=== PATIENT | female | born 2005 | race Hispanic/Latino ===

== ENCOUNTER 2023-02-23 13:46 | Emergency (ER) | payer OTHER, SELFPAY ==
[2023-02-23 13:57] VITALS: BP 110/65; PULSE 87; RESP 16; TEMP 36.6; O2SAT 99
--- NOTE | 2023-02-23 14:51 | ED.EAR ---
HPI - Ear Problem General Chief complaint: Ear Stated complaint: Right Ear Irritation Time Seen by Provider: 02/23/23 14:51 Source: patient Mode of arrival: ambulatory Limitations: no limitations History of Present Illness HPI Narrative: 17 y/o female presented for c/o right ear pain for one week. Endorses decreased hearing. Denies tinnitus, drainage, headache, n/v/d/f/c. Has sinus congestion and drainage often. Not taking anything for symptoms. MD Complaint: ear pain Related Data Home Medications Medication Instructions Recorded Confirmed clobazam 20 mg tablet mg 02/23/23 folic acid 1 mg tablet 02/23/23 lacosamide 200 mg tablet (Vimpat) mg 02/23/23 levothyroxine 88 mcg tablet mcg 02/23/23 ruxolitinib 1.5 % topical cream applic topical 02/23/23 (Opzelura) zonisamide 100 mg capsule mg PO 02/23/23 Allergies Allergy/AdvReac Type Severity Reaction Status Date / Time carbamazepine Allergy Mild Unknown Unverified 02/23/23 13:54 Review of Systems Review of Systems: CONSTITUTIONAL: Denies malaise, chills, or fever. EYES: Denies visual changes, redness, or discharge. ENT: Denies sinus pain, and sore throat. Reports ear pain, rhinorrhea CARDIOVASCULAR: Denies chest pain, palpitations, or edema. RESPIRATORY: Denies cough or dyspnea. GASTROINTESTINAL: Denies abdominal pain, nausea, vomiting, diarrhea SKIN: Denies rash or itching. MUSCULOSKELETAL: Denies myalgia. NEUROLOGIC: Denies headache. All systems reviewed & are unremarkable except as noted in HPI and below [facility] Past Medical History Medical History (Updated 02/23/23 @ 15:01 by Katherine Boggs, ROZINA) Seizure Comments At time of signature, agree with nursing past medical, surgical, social and family history. There is no relevant family history pertinent to the presenting complaint Exam Narrative: GENERAL: Well-appearing HEAD: Normocephalic EYES: PERRLA, conjunctivae clear ENT: Nares clear. Mucous membranes moist. Left TM pearly ortega with normal light reflex; Right TM erythematous and bulging with purulent effusion; no tragal tenderness. Oropharynx not erythematous Tonsils not enlarged NECK: Supple. No lymphadenopathy CHEST: Clear to auscultation, breath sounds equal. No wheezing, rhonchi, rales, or stridor. No respiratory distress, speaks in full sentences. HEART: Regular rate and rhythm. No murmur heard. SKIN: Warm, dry, no rash. NEURO: Alert and oriented x3. PSYCH: Normal mood and affect Course Course Emergency Course: Patient is aware of diagnosis, understands and agrees to treatment plan. Anticipatory guidance given. Patient agrees to follow-up as directed and is aware of reasons to seek care at the emergency department. Portions of this record may have been created with voice recognition software Level of Care: Express Care Visit Vital Signs Vital signs: Vital Signs Temperature 97.9 F 02/23/23 13:57 Pulse Rate 87 02/23/23 13:57 Respiratory Rate 16 02/23/23 13:57 Blood Pressure 110/65 02/23/23 13:57 Pulse Oximetry 99 02/23/23 13:57 Oxygen Delivery Room Air 02/23/23 13:57 Temperature 97.9 F 02/23/23 13:57 Pulse Rate 87 02/23/23 13:57 Respiratory Rate 16 02/23/23 13:57 Blood Pressure 110/65 02/23/23 13:57 Pulse Oximetry 99 02/23/23 13:57 Oxygen Delivery Room Air 02/23/23 13:57 Reviewed Medical Decision Making MDM Narrative Medical decision making narrative: Right AOM, discussed PE findings and Rx abx. Advised supportive measures and signs/symptoms to go to the ER. Patient is appropriate for outpatient treatment and follow-up. Differential Diagnosis Differential Diagnosis: Coronavirus, strep pharyngitis, allergic rhinitis, upper respiratory tract infection, sinusitis, rhinosinusitis, nasopharyngitis, viral pharyngitis, otitis media, otitis externa, eustachian tube dysfunction, foreign body, cerumen impaction. Vital Signs Vital Signs: Vital Signs Temperature 97.9 F 05
[2023-02-23 14:54] VITALS: BP 110/65; PULSE 87; RESP 16; TEMP 36.6; O2SAT 99
== END 2023-02-23 15:04 | disposition home or self-care (01) ==
PROVIDERS: Emergency Provider Nurse Practitioner Family; PCP Physician Assistant
DX: H66.001 Acute suppurative otitis media without spontaneous rupture of ear drum, right ear (principal)
CPT/HCPCS: 99213; G0463

== ENCOUNTER 2025-06-25 14:22 | Emergency (ER) | payer OTHER, SELFPAY ==
--- NOTE | 2025-06-25 14:26 | ED.EAR ---
HPI - Ear Problem General Stated complaint: LT Ear Problems Time Seen by Provider: 06/25/25 14:26 Source: patient Mode of arrival: ambulatory Limitations: no limitations History of Present Illness HPI Narrative: Patient is a 20-year-old female presents with intermittent tinnitus for 2 weeks. Patient started on risperidone in February. Patient reports symptoms are worse when she is in the bathroom and improved when wearing ear plugs. Mother's concern that patient is having episodes of psychosis where she is hallucinating. Patient denies any ear pain MD Complaint: ear pain Related Data Home Medications ?Medication ?Instructions ?Recorded ?Confirmed ?Last Taken ?Type clobazam 20 mg tablet mg 02/23/23 Unknown History folic acid 1 mg tablet 02/23/23 Unknown History lacosamide 200 mg tablet (Vimpat) mg 02/23/23 Unknown History ruxolitinib 1.5 % topical cream applic topical 02/23/23 Unknown History (Opzelura) zonisamide 100 mg capsule mg PO 02/23/23 Unknown History levothyroxine 125 mcg tablet mcg 06/25/25 Unknown History risperidone 0.5 mg tablet mg 06/25/25 Unknown History Allergies Allergy/AdvReac Type Severity Reaction Status Date / Time carbamazepine Allergy Intermediate Rash Verified 06/25/25 14:25 Review of Systems Review of Systems: All systems reviewed & are unremarkable except as noted in HPI and below Constitutional: Constitutional: Denies body ache(s), Denies chills, Denies fever(s), Denies headache(s) and Denies malaise Eyes: Eyes: Denies blurry vision, Denies eye discharge and Denies irritation ENT: Reports otalgia, Denies headache(s), Denies nasal congestion, Denies nasal discharge, Denies sore throat and Reports other (Tinnitus) Cardiovascular: Cardiovascular: Denies chest pain, Denies edema, Denies palpitations and Denies dyspnea on exertion Respiratory: Respiratory: Denies cough and Denies dyspnea on exertion Gastrointestinal: Gastrointestinal: Denies abdominal pain, Denies diarrhea, Denies nausea and Denies vomiting Musculoskeletal: Musculoskeletal: Denies back pain, Denies arthralgias and Denies muscle weakness Integumentary/Breasts: Skin/Breast: Denies pruritus and Denies rash Neurologic: Denies headache(s) Psychiatric: Psychiatric: Reports no additional psychiatric complaints Endocrine: Endocrine: Denies palpitations PMFSH Past Medical History Medical History Seizure Comments At time of signature, agree with nursing past medical, surgical, social and family history. There is no relevant family history pertinent to the presenting complaint? Exam Const: General: cooperative, healthy appearing, no acute distress and well nourished Nutritional Appearance: well nourished Orientation/consciousness: patient oriented x3 Limitations: no limitations HENMT: Head: normal to inspection, normocephalic and atraumatic Ears: hearing grossly normal bilaterally, EAC's normal, no periauricular adenopathy and TM abnormal Face/Nose/Sinus: Normal external nose present, Normal nares present, Normal nasal mucous membranes and turbinates present, No nasal discharge present, normal facial exam and sinuses nontender Face and sinus: normal facial exam and sinuses nontender Mouth: Yes Normal oral and palatal mucosa present, Yes lip normal, Yes tongue normal and Yes moist mucous membranes Throat: posterior oropharynx normal, tonsils normal and uvula midline Eyes: General: appearance normal, both eyes and all related structures Alignment and Position: alignment normal and position normal Eyelids: eyelids normal Pupils: Equal, round and reactive pupils present EOM: EOMs intact bilaterally Neck: Neck: normal visual inspection, full ROM, no lymphadenopathy and supple Chest: Chest palpation & inspection: normal inspection of the chest Resp: Effort & Inspection: normal respiratory effort and able to speak in complete sentences Auscultation: clear to auscultation bilaterally, no crackles, no rales, no rhonchi and no wheezes Cardio: Rate: regular rate Rhythm: regular rhythm Heart sounds: S1 normal heart sound present and S2 normal heart sound present Skin: General skin exam: normal color and no rashes or lesions noted Neuro: General: patient oriented x3 and moves all extremities Cranial nerves: Yes Equal, round and reactive pupils present Cognition (Neuro): normal cognition Speech: normal speech Gait exam (Neuro): Normal gait present Extrem: General: normal to inspection and full ROM Psych: Appearance: grossly normal and well kempt Mental Status: mental status grossly normal Speech and movement: Normal speech and movement present Course Course Emergency Course: Patient is aware of diagnosis, understands and agrees to treatment plan.? Anticipatory guidance given.? Patient agrees to follow-up as directed and is aware of reasons to seek care at the emergency department.? Portions of this record may have been created with voice recognition software? Level of Care: Express Care Visit Vital Signs Vital signs: Reviewed Medical Decision Making MDM Narrative Medical decision making narrative: Pt well hydrated appearing, in no respiratory distress, hemodynamically stable. Recommend supportive care. The patient is stable at time of discharge the clinical impression was discussed and the patient was given the opportunity to ask questions, which were addressed as completely as possible given the information available at present. Anticipatory guidance and return to care precautions were discussed and the importance of primary care follow-up was stressed and encouraged. The patient voiced understanding of the plan, indications to return, and the need for follow-up. Exam findings show no acute concerns or changes Patient is appropriate for outpatient treatment and follow-up. Differential diagnosis considered: otitis media, otitis externa, otitis effusion, foreign body, cerumen impaction, viral syndrome, tinnitus, medication reaction Medical Records Medical records reviewed: Yes I reviewed the external patient's medical records. Discharge Plan Discharge Clinical Impression: Tinnitus Qualifiers: Laterality: left Qualified Code(s): H93.12 - Tinnitus, left ear Patient Disposition: Home Condition: Stable Instructions: Tinnitus (ED) Additional Instructions: Continue wear ear plugs as they can help limit ringing when loud noises are present 1) Please follow-up with your primary care doctor in the next 1-2 weeks if symptoms persist. You may need to see ENT. 2) If you have any worsening of symptoms or any other urgent concerns please go to the ER. 3) Please take medications as prescribed and continue taking your home medications as usual. 4) Please read and follow information included in discharge instructions. Patient Language: Algerian Prescriptions: No Action zonisamide 100 mg capsule PO levothyroxine 88 mcg tablet folic acid 1 mg tablet lacosamide [Vimpat] 200 mg tablet clobazam 20 mg tablet Opzelura 1.5 % cream TOPICAL amoxicillin-pot clavulanate 875-125 mg tablet 1 tablet PO Q12H 7 Days Qty: 14 0RF Follow-up/Referrals: Charles,PAULA Bush [Primary Care Provider, Unknown] - 1 Week Time of Disposition: 14:41
[2025-06-25 14:28] VITALS: BP 121/64; PULSE 66; RESP 16; TEMP 36.2; O2SAT 100
== END 2025-06-25 14:45 | disposition home or self-care (01) ==
PROVIDERS: Emergency Provider Nurse Practitioner Family; PCP Physician Assistant Medical
DX: H93.12 Tinnitus, left ear (principal); Z79.899 Other long term (current) drug therapy
CPT/HCPCS: 99211; G0463

== ENCOUNTER 2025-07-27 09:57 | Outpatient (CLI) | payer OTHER, SELFPAY ==
--- OUTSIDE RECORDS SUMMARY | 2006-11-15 03:33 | XMS_ITS | Continuity of Care Document ---
Author Organization [facility] Address [address] [place] [address] Phone Care Team Providers Care Hair Sample Matcher Name Role Phone Maria Elena Wolfe Unavailable Unavailable Procedures Procedure Date Office/outpatient Visit, [facility] Advance Directives Directive Yes / No Effective Date File Name No Information Encounters Encounter Description Practice Location Reason(s) For Visit Diagnoses Date Provider Providers Copied on Encounter Office/outpat ient Visit, [facility], [address], [place], [place], [id number], [place] tel:[phone] [facility] No Information [phone] Yan[address] Arredondo. [address] [facility] , [address], [place], [address], [place]. tel:[phone] Family History Family Member Type Diagnosis Age At Onset No Information Payers Payer name Insurance type Covered democrat ID Authoriza tion(s) Medicaid [facility] [id number] Social History Type Description Quantity Date Captured Comments Sex Female Smoking Status No Information Chief Complaint And Reason For Visit No Information Reason For Referral Reason For Referral No Information History Of Present Illness Encounter Date Complaint History Of Prese nt Illness No Information Functional Status Date Functional Assessmen t No Information Instructions Date Instruction Additional Infor mation No Information Assessments Type Assessment Date No Information Patient Care Teams Name Effective Dates (start - stop) Status Members No Information
--- OUTSIDE RECORDS SUMMARY | 2025-07-27 11:02 | XMS_ITS | Encounter Summary ---
Author Organization [facility] Healthcare Address [address] [place] [address] Care Team Providers Care Roll Inspector Name Role Phone Edy Soto Primary Care Provider [phone] Ciarra Stuart MD Unavailable [phone] Encounter Details Date Type Department Care Team (Late st Contact Info) Description 07/07/2025 Results Follow-Up [facility] Diabetes and Endocrinology [address] [place] [id number] Luzmaria Alejo, INTERNET MARKETING MANAGER [address] [facility] [address] [place] [address] Vitamin D 25 hydroxy, TSH, T4, free Social History Tobacco Use Types Packs/Day Years Used Date Smoking Tobacco: Never Smokeless Tobacco: Never Alcohol Use Standard Drinks/Week Comments Not Currently 0 (1 standard drink = 0.6 oz pur e alcohol) [facility] Utilities Answer Date Recorded In the past 12 months has th e electric, gas, oil, or water company threatened to shut off services in your home? No 02/27/2025 Humiliation, Afraid, Rape, and Kick questionnair e Answer Date Recorded Within the last year, have y ou been afraid of your partner or ex-partner? No 02/27/2025 Within the last year, have y ou been humiliated or emotionally abused in other ways by your partner or ex-partner? No Within the last year, have y ou been kicked, hit, slapped, or otherwise physically hurt by your partner or ex-partner? No 02/27/2025 Within the last year, have y ou been raped or forced to have any kind of sexual activity by your partner or ex-partner? No 02/27/2025 Social Connection and Isolation Panel Answer Date Recorded In a typical week, how many times do you talk on the phone with family, friends, or neighbors? More than three times a week 02/27/2025 How often do you get togethe r with friends or relatives? More than three times a week 02/27/2025 How often do you attend chur ch or jew services? Never 02/27/2025 Do you belong to any clubs o r organizations such as judaism groups, unions, fraternal or athletic groups, or school groups? No 02/27/2025 How often do you attend meet ings of the clubs or organizations you belong to? Never 02/27/2025 Are you , , di vorced, , never , or living with a partner? Never 02/27/2025 AUDIT-C Answer Date Recorded Q1: How often do you have a drink containing alcohol? Never 02/27/2025 Q2: How many drinks containi ng alcohol do you have on a typical day when you are drinking? Patient does not drink Q3: How often do you have si x or more drinks on one occasion? Never 02/27/2025 Overall Financial Resource Strain (CARDIA) Answe r Date Recorded How hard is it for you to pa y for the very basics like food, housing, medical care, and heating? Not hard at all 02/27/2025 PHQ-2 Answer Date Recorded PHQ-2 Total Score (If total score is 3 or more points, staff should administer the PHQ-9) 0 03/06/2022 [facility] - Occupational Stress Questionnaire Answer Date Recorded Do you feel stress - tense, restless, nervous, or anxious, or unable to sleep at night because your mind is troubled all the time - these days? Not at all 02/27/2025 Exercise Vital Sign Answer Date Recorde d On average, how many days pe r week do you engage in moderate to strenuous exercise (like a brisk walk)? 0 days 02/27/2025 On average, how many minutes do you engage in exercise at this level? 0 min 02/27/2025 Hunger Vital Sign Answer Date Recorded Within the past 12 months, y ou worried that your food would run out before you got the money to buy more. Never true 02/28/20 25 Within the past 12 months, t he food you bought just didn't last and you didn't have money to get more. Never true 02/27/2025 PRAPARE - Transportation Answer Date Re corded In the past 12 months, has l ack of transportation kept you from medical appointments or from getting medications? No 06/2025 In the past 12 months, has l ack of transportation kept you from meetings, work, or from getting things needed for daily living? No 02/27/2025 Housing Stability Vital Sign Answer Andrei e Recorded In the last 12 months, was t here a time when you were not able to pay the mortgage or rent on time? No 02/27/2025 In the past 12 months, how m any times have you moved where you were living? 0 02/27/2025 At any time in the past 12 m [facility], were you homeless or living in a fpc (including now)? No 02/27/2025 Personal Safety Answer Date Recorded Have you ever been in or are you currently in a harmful physical or emotional relationship or is someone making you feel afraid or unsafe? Denies 03/08/2025 Education Answer Date Recorded What is the highest level of school you have completed or the highest degree you have received? 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 Answer Date of Assessment Author No 02/27/2025 3:09 PM CDT Kimberley Wilson MSW * Are you blind or do you have serious difficulty seeing, even when wearing glasses? Answer Date of Assessment Author No 02/27/2025 3:09 PM CDT Kimberley Wilson MSW * Do you have serious difficulty walking or climbing stairs? Answer Date of Assessment Author No 02/27/2025 3:09 PM CDT Kimberley Wilson MSW * Do you have serious difficulty dressing or bathing? Answer Date of Assessment Author No 02/27/2025 3:09 PM CDT Kimberley Wilson MSW * Because of a physical, mental, or emotional condition, do you have serious difficulty doing errandsalone such as visiting the doctor? Answer Date of Assessment Author Yes 02/27/2025 3:09 PM CDT Kimberley Wilson MSW documented as of this encounter Mental Status * Because of a physical, mental, or emotional condition, do you have serious difficulty concentrating, remembering, or making decisions? (5 years old or older) Answer Entry Date Author Yes 02/27/2025 3:09 PM CDT Kimberley Wilson MSW documented in this encounter Miscellaneous Notes * Result Encounter Note - Luzmaria Alejo NP - 07/07/2025 8:20 AM CDT Karina Crump & Paige, Your thyroid results are in range. No changes; continue the levothyroxine 125mcg daily as you currently are taking. The vitamin D level is in normal range but at low end. You can double up what you're currently taking. Please call or send a Eye-Q message if any questions. Thank you, Luzmaria Alejo, CHELSY-vick documented in this encounter Plan of Treatment Not on file documented as of this encounter Visit Diagnoses Not on filedocumented in this encounter Care Teams Roll Inspector Relationship Specialty Start Date End Date Edy Soto PA [address] [place], [place] [id number] PCP - General Physician Drawing Tender 05/08/25 Ciarra Stuart MD [id number] [place] [address] Resident Psychiatry 05/15/25 04/20/26 documented as of this encounter
--- OUTSIDE RECORDS SUMMARY | 2025-07-27 11:02 | XMS_ITS | Clinical Summary ---
Author Organization [facility] Address [address] [place] [address] Care Team Providers Care Roll Cutter Name Role Phone Edy Soto Primary Care Provider [phone] Ciarra Stuart MD Unavailable [phone] Allergies Active Allergy Reactions Criticality Noted Date Comments Carbamazepine Rash Medium 05/08/2011 Reaction: RASH, Levetiracetam Other (See comments) Low 01/03/2023 Reaction: UNKNOWN, Reaction: UNKNOWN, Reaction: UNKNOWN, Oxcarbazepine Rash Medium 05/31/2015 Medications cholecalcifer ol (VITAMIN D-3) 1,000 unit tabletIndicat ions:Vitamin D Deficiency 2 tablets (2,000 Units total) daily 08/23/20 15 Active folic acid (FOLVITE) 1 mg tabletIndicat ions:Folate Deficiency Take 1 tablet (1,000 mcg total) by mouth daily 30 tablet 11/08/19 22 Active magnesium oxide 400 mg magnesium capsuleIndica tions:hypomag nesemia Take 400 mg by mouth 2 (two) times a day Active FeroSuL 325 mg (65 mg iron) tabletIndicat ions:Iron Deficiency Anemia TAKE 1 TABLET BY MOUTH THREE TIMES DAILY DIRECTED 11/28/19 23 Active zonisamide (ZONEGRAN) 100 mg capsuleIndica tions:Partial Epilepsy Treatment Adjunct TAKE 4 CAPSULES BY MOUTH NIGHTLY WITH ONE 50 MG CAPSULE NIGHTLY FOR A TOTAL OF 450 MG 120 capsule 5 01/06/20 Active Vimpat 200 mg tabletIndicat ions:Focal Epilepsy Take 1 tablet by mouth twice daily 60 tablet 5 01/19/20 23 Active Opzelura 1.5 % creamIndicati ons:Vitiligo APPLY 1 APPLICATION TOPICALLY TWICE DAILY 60 g 10/09/20 Active Additional Information Patient not taking.Reported on 07/06/2025 Victoza 2-Anurag 0.6 mg/0.1 mL (18 mg/3 mL) injectionIndi cations:type 2 diabetes mellitus INJECT 0.6MG SUBCUTANEOUSLY EVERY DAY FOR ONE WEEK THEN INCREASE TO 1.2MG EVERY DAY 11/03/19 Active levothyroxine (SYNTHROID) 125 mcg tabletIndicat ions:hypothyr oidism Take 1 tablet (125 mcg total) by mouth daily 30 tablet 11 12/24/19 25 2025 Active cloBAZam (ONFI) 20 mg tabletIndicat ions:Guevara-G astaut Syndrome Treatment Adjunct Take 1 tablet (20 mg total) by mouth 2 (two) times a day 60 tablet 5 04/17/20 25 Active risperiDONE (RisperDAL) 2 mg tablet Take 1 tablet (2 mg total) by mouth nightly 30 tablet 2 06/29/20 25 2024 Active risperiDONE (RisperDAL) 0.5 mg tablet Take 1 tablet (0.5 mg total) by mouth nightly In addition to one 1 mg tablet for total of 1.5 mg nightly. 30 tablet 2 06/15/20 25 2024 Discontinued risperiDONE (RisperDAL) 1 mg tablet Take 1 tablet (1 mg total) by mouth nightly In addition to one 0.5 mg tablet for total of 1.5 mg nightly. 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 Unclear at this time whether psychotic symptoms are a result of interictal confusional states vs seizure phenomenology; as Alisia has never achieved complete control of epilepsy, this is likely to remain diagnostically uncertain. If psychotic symptoms were persistent in any regard in the absence of ongoing seizures, would raise concern for a primary psychotic disorder. Today, Dominga & Alisia report stable remission of psychotic symptoms on risperidone. Dominga is concerned that Yasmins breakthrough seizures are possibly more frequent since starting risperidone; will continue to monitor over the next few months to get a better idea of frequency and if it is persistently elevated can consider further dose reduction of risperidone vs coordination with neurology to increase antiseizure medications. Nocturnal enuresis is improving with dose reduction of risperidone. - continue risperidone 1.5 mg qhs for psychosis Assessment & Plan (05/15/2025 11:04 AM CDT): With 3 weeks of auditory (of family member's voices who were not present) and visual (of said family members around her house) hallucinations, delusions of reference (receiving messages from cameras, objects), disorganized thought process, changes in behavior (stealing money, spending impulsively), and social withdrawal from family in the context of intractable epilepsy with ongoing possible seizures. Unclear at this time whether psychotic symptoms are a result of interictal confusional states vs seizure phenomenology; as Alisia has never achieved complete control of epilepsy, this is likely to remain diagnostically uncertain. If psychotic symptoms were persistent in any regard in the absence of ongoing seizures, would raise concern for a primary psychotic disorder. 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 Today, both Dominga and Alisia report complete remission of psychotic symptoms with increased risperidone dose; however, they also report nightly nocturnal enuresis that has emerged in the last month since increasing risperidone to 2 mg; Dominga is interested in trying a slightly lower dose to see if psychotic symptoms can be controlled without sedation so deep that Alisia doesn't wake up for bathroom needs. - decrease risperidone to 1.5 mg qhs for psychosis Assessment & Plan (04/16/2025 3:33 PM CDT): Patient presented with three-week history of positive psychotic symptoms, including auditory hallucinations (familiar voices providing commentary or commands, hearing central african music, and smoke detectors speaking to her), referential delsusions, and disorganized behavior characterized by guardedness, decreased appetite, locking parents out of house, and echolalia. Has not expressed overt depression, hopelessness, anger, suicidal ideation, or homicidal ideation. Over the past year, she has been withdrawn from social events, though this has been attributed to a perceived lack of connection with peers rather than clear affective symptoms. Complicating the clinical picutre is a history of intractable epilepsy, with concern for possible recent seizure activity coinciding with symptom onset/ she is primarily care for by family, and there is low suspicion for subsatnce induced symptoms. While a mood disorder remains a diagnostic consideration, there is minimal evidence of a majore depressive episode or yaritza beyond guilt statements (about stealing the money) and mild social withdrawal. No known family history of psychiatric disorders. The patient has been adherent with medications. Recent visit to [facility] x2. Interictal psychosis remains the leading hypothesis given the known epilepsy, chronicity. While zonisamide can contribute to psychosis, there have been no recent changes in her regimen. Symptoms persisting despite optimized seizure control would make primary psychotic disorder more likely. There has been improvement in positive symptoms on risperidone 1 mg daily. She continues to experience auditory hallucinations daily, with a broken heart' because of that. Less psychomotor retardation, better appetite/eating without encouragement. Plan to increase risperidone to 2 mg and assess response in one month. Assessment & Plan (03/11/2025 3:07 PM CDT): Patient with three week history of positive psychotic symptoms including auditory hallucinations (familiar voices - commentary, commanding; central african music; smoke detectors talking to her), reference delusions, disorganized behavior (guardedness, needs encouragement to eat, locking parents out of house, repeating phrases). She has made statements that were self-critical but no statements that would indicate depressed mood, hopelessness, anger, suicidal ideation, homicidal ideation. Over the past year, she has been less interested in social gatherings but attributable to not fitting in with peers. Complicating this is patient's history of intractable epilepsy and the possibility of recent seizure activity coinciding with onset of symptoms. Patient is primarily cared for by family, so low suspicion for substance use. Mood disorders may underlay presentation, but beyond limited guilt statements and less interactions over past year, there's not much indicating an MDE or yaritza. Catatonia is a concern theodore with acute change, but exam with no mutism, no negativism, no catalepsy, no stupor, no excitement, no withdrawal, no mannerisms; grimacing in response to AH, but not held for long. No family history of psych disorders. Med adherence per mom. Recent travel to [place]. Highest suspicion is interictal psychosis as opposed to a primary psychotic disorder. Medications can also cause psychosis, particularly patient's zonisamide but no recent changes have been made. If symptoms persist despite optimized treatment of epilepsy, then it would be reasonable to diagnose a comorbid psychotic disorder. No history of affective episodes or symptoms leading up to this acute change making MDD and yaritza w/ psychosis less likely. Appetite, sleep, and sadness seem primarily driven by hallucinations being distressing. In terms of management, trial of klonopin had some benefit. Will still need EEG/bMRI results and neuro f/u as seizure control is primary goal. Antipsychotics will have benefit in symptom control, especially as Ms. Olivares is so distressed; may consider taper when symptoms resolved for 3-4 months as that may offer diagnostic clarification of IIP vs psychosis due to medical cause. There may be a need for chronic antipsychotic treatment if symptoms persist with taper. Assessment & Plan (03/05/2025 1:20 PM CDT): Patient with three week history of positive psychotic symptoms including auditory hallucinations (familiar voices - commentary, commanding; central african music; smoke detectors talking to her), reference delusions, disorganized behavior (guardedness, needs encouragement to eat, locking parents out of house, repeating phrases). She has made statements that were self-critical but no statements that would indicate depressed mood, hopelessness, anger, suicidal ideation, homicidal ideation. Over the past year, she has been less interested in social gatherings but attributable to not fitting in with peers. Complicating this is patient's history of intractable epilepsy and the possibility of recent seizure activity coinciding with onset of symptoms. Patient is primarily cared for by family, so low suspicion for substance use. Mood disorders may underlay presentation, but beyond limited guilt statements and less interactions over past year, there's not much indicating an MDE or yaritza. Catatonia is a concern theodore with acute change, but exam with no mutism, no negativism, no catalepsy, no stupor, no excitement, no withdrawal, no mannerisms; grimacing in response to AH, but not held for long. No family history of psych disorders. Med adherence per mom. Recent travel to [place]. Highest suspicion at this time is postictal and/or interictal psychosis as opposed to a primary psychotic disorder. The symptoms of PIP often resolve within 4 weeks with appropriate management, but if persisting beyond the first month then this may indicate IIP or comorbid psychotic disorder. Medications can also cause psychosis, particularly patient's zonisamide but no recent changes have been made. If symptoms persist despite optimized treatment of epilepsy, then it would be reasonable to diagnose a comorbid psychotic disorder. No history of affective episodes or symptoms leading up to this acute change make MDD and yaritza w/ psychosis less likely. In terms of management, will trial increased benzo dose (pt already on clobazam) and assess response. Symptoms have occurred for less than a month at this point and we can still expect full resolution if PIP. Will add low dose risperdal if symptoms persisting; diagnosis will need time as IIP and psychotic disorder both would benefit from antipsychotic. 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 Talk to your PCP about any new symptoms. Follow up in: as directed by PCP and specialist Assessment & Plan (03/08/2022 11:41 AM CDT): Chronic anemia Check labs and further plans based on it Frequent headaches 02/07/2021 Vitamin D insufficiency 08/16/2020 Overview (12/07/2023): Last Assessment & Plan: Condition: stable Ref Range & Units 03/06/22 1322 Vitamin D 25-OH 30 - 80 ng/mL 31 Follow up in: as directed by PCP Assessment & Plan (07/06/2025 1:36 PM CDT): Chronic problem. Currently taking D3 1000IU daily. Has not had D3 level updated since 2021. Will update today. Verified that she uses mychart. Aware to check results/results letter in [employer]. Will contact by phone if needed. 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 Follow up in: as directed by PCP and specialist Assessment & Plan (07/06/2025 1:35 PM CDT): Chronic problem. Clinically & biochemically euthyroid on current levothyroxine 125 mcg daily. Aware to take 1st thing in morning, 30-60 minutes before food/drink/other medications. Will update TFTs today. Verified that she uses mychart. Aware to check results/results letter in [employer]. Will contact by phone if needed. Assessment & Plan (06/16/2024 4:44 PM CDT): Chronic, worsening Free T 4 levels - low ( recently checked by PCP ) No TSH lab available Pt refused to repeat thyroid labs today Plan to increase Levothyroxine to 100 mcg oral daily Repeat thyroid labs in 3 months ( end of Aug 2024 ) Follow up in 3 months Assessment & Plan (03/05/2023 1:01 PM CDT): Continue current Levothyroxine dose Recheck TSH today and further plans based on it Instructions for taking levothyroxine Brand name is preferred Take thyroid pill all by itself Take thyroid pill one hour before food or 2 to 3 hours after food Heat, humidity, and direct sunlight will cause a loss of potency Never store thyroid pill in the bathroom The medication should be taken daily. If one or more pills are missing in a week, they can be taken all together at once, making sure at the end of the week, 7 tabs have been taken. 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 Epilepsy, focal 11/24/2013 Overview (12/07/2023): Last Assessment & Plan: Condition: stable Last neurology appt 12/11/22, instructed to follow up in 6 months. Take medication as prescribed. No bathing, swimming, operating dangerous machinery, climbing ladders without supervision No driving unless cleared by your health care provider. Follow up in: as directed by your PCP and neurologist Assessment & Plan (02/27/2025 12:23 PM CDT): she has experienced childhood-onset multifocal complex seizures since the age of 1, necessitating frequent neurology follow-ups and treatment with several anti- seizure medications. 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 -continue home meds Autoimmune thyroiditis 04/26/2012 Morbid (severe) obesity due to excess calories 0 04/26/2012 Overview (12/07/2023): Last Assessment & Plan: Condition: stable Co-morbidities: N/A BMI > 40 Discussed importance of healthy BMI and weight loss should be attempted with healthy diet and exercise. Include more fresh vegetables and stick to lean meats. Avoid processed foods, foods high in fat and sugar, and eliminate sugary drinks such as juice and soda. Including exercise should be a minimum of 30 minutes of aerobic activity on most days of the week, along with three days of resistance training. Building muscle helps to burn more calories. Make realistic goals and take baby steps. Make one good healthy choice each day and add another healthy choice each day or each week. Stay consistent and motivated by sharing your goals with others. Follow up in: one month Assessment & Plan (06/15/2025 9:44 AM CDT): >>ASSESSMENT AND PLAN FOR MORBID OBESITY WITH BMI OF 40.0-44.9, ADULT (HCC) WRITTEN ON 03/08/2022 11:41 AM BY LUIS M RIZVI MD Chronic, worsening Counseled on diet and exercise Rule out secondary causes - check IGF-1 levels, check thyroid function test - check testosterone levels - also plan to do low-dose dexamethasone suppression test. Assessment & Plan (06/15/2025 9:44 AM CDT): >>ASSESSMENT AND PLAN FOR MORBID OBESITY WITH BMI OF 40.0-44.9, ADULT (HCC) WRITTEN ON 09/04/2022 11:49 AM BY LUIS M RIZVI MD Chronic, out of control, slowly improving Discussed about healthy lifestyle habits advise to work on healthy diet, avoid processed foods , increase vegetables and protein and cut back on carb portions and also avoid fruit juices and regular soda and desserts Increase physical activity , recommend at least 150 min of aerobic activity per week and include resistance training 2 x weekly - ordered low dose dexamethasone suppression test Assessment & Plan (06/15/2025 9:44 AM CDT): >>ASSESSMENT AND PLAN FOR MORBID OBESITY WITH BMI OF 40.0-44.9, ADULT (HCC) WRITTEN ON 03/05/2023 1:00 PM BY LUIS M RIZVI MD Counseled on diet and exercise encouraged to keep working on her exercise program Include resistance training And also try to be active through out the day And counseled on diet 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, did not help much Also advised to start looking non measurable victories All secondary work up for obesity in past came back negative Assessment & Plan (06/16/2024 4:45 PM CDT): Chronic, worsening Discussed about healthy lifestyle habits advise to work on healthy diet, avoid processed foods , increase vegetables and protein and cut back on carb portions and also avoid fruit juices and regular soda and desserts Increase physical activity , recommend at least 150 min of aerobic activity per week and include resistance training 2 x weekly Gained 9 lbs since last visit Advise to keep working on diet and increase physical activity, goal to normalize thyroid labs - so check the labs as advised Follow up in 6 months Endocrine disorder 03/04/2012 Overview (12/07/2023): vitiligo, alopecia areata, obesity and evidence of hypothyroidism; also with increased risk of psoriasis and atopy Component 03/12/2012 02/15/2012 Thyroglobulin Ab 1208 (H) Thyroid Peroxidase Ab 607 (H) TSH 5.49 (H) Glucose 96 Insulin 42.4 T4 Free 0.9 T4 Total 6.4 Alopecia areata 02/15/2012 Overview (12/07/2023): Two 2cm patches on vertex of scalp and diffuse canities, retained hair line Vitiligo 02/14/2006 Overview (12/07/2023): Onset age 1, started acral; gradually worsening, now generalized with canities. Poor recollection about medication regimen and rate of spread; possibly more progressive since age 6-7 Last Assessment & Plan: Condition: stable Last dermatology appt 12/06/22. Using topical and phototherapy. Instructed to follow up in 6 months. Follow up in: as directed by PCP and specialist Resolved Problems Problem Noted Date Diagnosed Date Resolved Date Transient alteration of awareness 03/03/2025 06/15/2025 Hallucinations 02/26/2025 03/05/2025 Unspecified mood (affective) disorder 02/15/2012 03/05/2025 Overview (12/07/2023): self esteem issue evaluated by Dr Estrella; Rx Celexa 01/30/12 Assessment & Plan (02/27/2025 12:31 PM CDT): Patient has no psychiatric history. Family noticed her RTIS in the bathroom starting 3 wks ago. She also had behavioral changes such as steeling from her mother's bosses purse, communicating with a stranger on [employer]. Since this punishment (phone and watch taken away), she has been RTIS more often, talking her her wrist where her watch was, more withdrawn, refuses physical contact from family, more restricted affect. She appears withdrawn, blunted and mildly confused. It is unclear if this is her baseline 2/2 to her seizure disorder and ID, however this could be concern for a development of a primary mood disorder. Per collateral it appears that she has had low mood, withdrawal, disinterest in activities, and changes in the way she interacts with others. Secondary psychotic disorders are also possible, including substance-induced psychosis, psychosis due to traumatic brain injury from head strikes during seizures, or psychosis related to her chronic seizure disorder. Alternatively, her symptoms may be a poor response to loneliness from being isolated at home for years, or from the stress of being confronted and grounded for the theft. Possible that speaking into wrist is way of coping. - family meeting today, if no safety concerns can likely discharge with outpatient follow up - In case of acute agitation, may consider Haldol 5 mg PO Q4hr PRN, or Haldol 5 mg + Ativan 2 mg IM Q4hr PRN if severely agitated or refusing PO. - Voluntary, would not 96 Encounters Date Type Department Care Team Description 07/07/2025 Results Follow-Up [facility] [address] [place] [phone] Luzmaria Alejo NP Vitamin D 25 hydroxy, TSH, T4, free 07/06/2025 1:40 PM CDT Lab [address] [address] Vitamin D insufficiency; Autoimmune hypothyroidism 07/06/2025 1:00 PM CDT Office Visit [facility] [address] [place] [phone] Luzmaria Alejo NP Autoimmune hypothyroidism (Primary Dx); Vitamin D insufficiency 06/29/2025 Telephone [facility] [address] [place] [address] Health [address] [place] [phone] Ciarra Stuart MD 06/15/2025 9:45 AM CDT Office Visit [facility] [address] [place] [address] [place] [phone] Ciarra Stuart MD Other specified schizophrenia spectrum and other psychotic disorder (Primary Dx); Encounter for autism screening 05/15/2025 10:15 AM CDT Office Visit [facility] [address] [place] [address] Health [address] [place] [phone] Ciarra Stuart MD Other specified schizophrenia spectrum and other psychotic disorder (HCC) (Primary Dx); Evaluation for autism 05/08/2025 10:18 AM CDT - 05/08/2025 11:59 PM CDT Hospital Encounter [facility] [address] [place] [address] Epilepsy, focal (HCC); Transient alteration of awareness Discharge Disposition: Discharge to home or self care 05/05/2025 2:00 PM CDT Office Visit [facility] Neurology [address] [facility] [address] [place] [phone] Dianna Grace NP Epilepsy, focal (HCC) (Primary Dx); Transient alteration of awareness from Last 3 Months Medical History Medical History Date Comments Epilepsy (HCC) On 1 ASMs with o ngoing breakthrough seizures Autoimmune thyroiditis Anemia Emphysema of lung Other specified schizophreni a spectrum and other psychotic disorder 02/2025 With AH, delusions of ref erence iso ongoing intractable epilepsy Intellectual disability Family History Medical History Relation Name Comments Arthritis Father Hypertension Father Low Back Pain Father Low Back Pain Mother Relation Name Status Comments Father Alive Mother Alive Sister Alive Social History Tobacco Use Types Packs/Day Years Used Date Smoking Tobacco: Never Smokeless Tobacco: Never Alcohol Use Standard Drinks/Week Comments Not Currently 0 (1 standard drink = 0.6 oz pur e alcohol) [facility] Utilities Answer Date Recorded In the past 12 months has e electric, gas, oil, or water [employer] threatened to shut off services in your [...] 02/27/2025 How often do you attend chur or hoahaoism services? Never 02/27/2025 Do you belong to any clubs o r organizations such as episcopalian groups, unions, fraternal or athletic groups, or [...] staff should administer the PHQ-9) 0 03/06/2022 [facility] - Occupational Stress Questionnaire Answer Date Recorded [...] any time in the past 12 m [facility], were you homeless or living in a longterm (including now)? No 02/27/2025 Personal Safety Answer [...] on file Legal Sex Female 3:56 AM [employer] Gender Identity Female 02/02/2021 9:08 PM CDT Sexual Orientation Straight 02/02/2021 9: 08 PM CDT Obstetrics History Last Filed Vital Signs Vital Sign Reading Time Taken Comments Blood Pressure 108/70 07/06/2025 12:47 PM CDT Pulse 80 07/06/2025 12:47 PM CDT Temperature 36.6 C (97.9 F) 05/15/2025 10:28 AM CDT Respiratory Rate 18 07/06/2025 12:4 7 PM CDT Oxygen Saturation 100% 05/15/2025 10: 28 AM CDT Inhaled Oxygen Concentration - - Weight 107.5 kg (236 lb 14.4 oz) 2024 12:47 PM CDT Height 160 cm (5' 2.99) 07/06/2025 12: 47 PM CDT Body Mass Index 41.98 07/06/2025 12:47 PM CDT Plan of Treatment Health Maintenance Due Date Last Done Comments Cervical Cancer Screening 2003 Hepatitis C Screening 2003 Meningococcal B Vaccine (1 of 2 - Standard) 2019 Regular Well Visit/Exam 18-64 2021 Depression Screening 03/06/2023 03/06/2022 DTaP/Tdap/Td Vaccine (7 - Td or Tdap) 05/19/2024 05/19/2014, 06/17/2007, 10/05/2004, Additional history exists Covid-19 Vaccine ( season) 2025 09/27/2021, 01/24/2021, 01/02/2021 Influenza Vaccine (#1) 2025 0, 09/01/2015, 08/05/2014, Additional history exists Hepatitis B Screening Completed 2003 , 2003, 2003, Additional history exists Pneumococcal vaccine <65 Aged Out 004, 2003, 2003 No longer eligible based on patient's age to complete this topic Varicella Vaccines Completed 06/17/2007, 06/01/2004 HPV Vaccines Completed 12/17/2013, 07/23, 06/24/2013 Procedures Procedure Name Priority Date/Time Associated Diagnosis Comments T4, FREE Routine 07/06/2025 1:45 PM CDT Autoimmune hypothyroidism TSH Routine 07/06/2025 1:45 PM CDT Autoimmune hypothyroidism VITAMIN D 25 HYDROXY Routine 07/06/2025 1:45 PM CDT Vitamin D insufficiency EEG Routine 05/08/2025 11:15 AM CDT Epilepsy, focal (HCC) Transient alteration of awareness from Last 3 Months Results * Vitamin D 25 hydroxy (07/06/2025 1:45 PM CDT) Vitamin D 25-OH 35.0 30.0 - 80.0 ng/mL Blood 07/06/2025 1:45 PM CDT 07/06/2025 6:29 PM CDT us Luzmaria Alejo [employer] LAB BLOOD ORDERABLES Loly wynn Result DULCE MARIA [address] [facility] Department [place] [address] * TSH (07/06/2025 1:45 PM CDT) Thyroid Stimulating Hormone 1.64 0.30 - 4.20 mcIUnit/mL Blood 07/06/2025 1:45 PM CDT 07/06/2025 6:29 PM CDT Luzmariamanan Alejo [employer] LAB BLOOD ORDERABLES Loly l Result Performing Organization Address [facility] de Phone Number DULCE MARIA [address] [address] * T4, free (07/06/2025 1:45 PM CDT) Free T4 1.05 0.90 - 1.70 ng/dL Blood 07/06/2025 1:45 PM CDT 07/06/2025 6:29 PM CDT Luzmariamanan Alejo [employer] LAB BLOOD ORDERABLES Loly l Result Performing Organization Address [facility] Phone Number [address] [address] * EEG (05/08/2025 11:15 AM CDT) Anatomical Region Laterality Modality EEG Narrative 05/08/2025 10:30 AM CDT Chris Cazares MD 05/08/2025 3:22 PM Reason for exam: history of focal epilepsy Technical: This is a digitally recorded electroencephalogram. It was just over 20 minutes long. The international 10-20 electrode placement system is used for scalp electrode placement. Eighteen channels of scalp EEG are recorded. One channel was used for EOG. Another channel was used for ECG. The data are stored digitally and reviewed in reformatted montages for optimal display. Background: 8-9 hertz alpha activity was seen. Maximal over the posterior head region. These activities are symmetric on both sides. They attenuated with eye opening. Intermittently seen left temporal sharp waves. Some right frontal sharps also seen, but difficult to tell with frequent patient movement artifact. Description: No focal slowing was seen. No seizure like activity was observed during this recording. Patient entered into periods of drowsiness and light sleep. . Hyperventilation was performed without any additional abnormalities. Photic stimulation was performed without any additional abnormalities. Impression: Abnormal EEG. Sharp waves seen in the left temporal leads, and less commonly in the right frontal leads as well, could suggest foci of known seizure disorder. No focal slowing, no seizure-like activity was observed. Correlation with clinical findings is needed. Dianna Lesly SIDDIQUI NEUROLOGY ORDERABLES Final R esult from Last 3 Months Insurance [facility] [id number] [facility] [place] [id number] [facility] MEDICAID [facility] Advance Directives For more information, please contact: [phone] * Full Code (Latest Code Status on File) Date Activated Date Inactivated Comments 02/27/2025 12:22 AM 02/27/2025 8:11 PM Care Teams Roll Cutter Relationship Specialty [place] [address] [place] [id number] PCP - General Physician Home Attendant 05/08/25 Ciarra Stuart MD [address] [place] [id number] Resident Psychiatry 05/15/25 04/20/26
== END 2025-07-27 09:58 | disposition home or self-care (01) ==
LOC: ANHAUDIO 09:58
PROVIDERS: PCP Physician Assistant Medical; Visit Provider Physician Assistant Medical
DX: H93.11 Tinnitus, right ear (principal)
CPT/HCPCS: 92557; 92567